=== PATIENT | female | born 1990 | race Caucasian/White ===

== ENCOUNTER 2018-01-08 20:11 | Emergency (ER) | payer MEDICAID ==
[~2018-01-08] VITALS: Ht 157.5 cm; Wt 112.6 kg
[~2018-01-08 20:11] MED LIST: DIPH25CA61 PO; FERR325T18 PO; IBUP-1223 PO; LEVO112T2 PO; LEVO150T5 PO; LEVO1TAB29 PO; LEVO200T5 PO; MULT-224 PO; NORG1TAB10 PO; RIZA10TA20 PO; SENN1TAB67 PO; TOPI100C3 PO
[2018-01-08 20:36] LABS: BASOPHILS # (AUTO) 0.13 x10^3/uL (0-0.1); BASOPHILS % (AUTO) 1 % (0-1); EOSINOPHILS # (AUTO) 0.12 x10^3/uL (0-0.4); EOSINOPHILS % (AUTO) 1 % (1-7); LYMPHOCYTES % (AUTO) 36 % (22-44); MD NO; MEAN CORPUSCULAR HEMOGLOBIN 30.7 pg (27.0-34.8); MEAN CORPUSCULAR HGB CONC 34.5 g/dL (32.4-35.8); MEAN PLATELET VOLUME 9.3 fL (7.4-10.4); MONOCYTES # (AUTO) 0.71 x10^3/uL (0.2-0.8); MONOCYTES % (AUTO) 6 % (2-9); NEUTROPHILS # (AUTO) 6.74 x10^3/uL (1.8-6.8); NEUTROPHILS % (AUTO) 56 % (42-75); PLATELET COUNT 358 x10^3/uL (130-400); RED BLOOD COUNT 4.71 x10^6/uL (3.82-5.3)
[2018-01-08 20:43] LABS: ALANINE AMINOTRANSFERASE 23 U/L (12-78); ANION GAP 10 mmol/L (5-15); CHLORIDE 106 mmol/L (98-107); CREATININE 0.73 mg/dL (0.55-1.02)
[2018-01-08 20:45] LABS: ALKALINE PHOSPHATASE 84 U/L (45-117); BILIRUBIN,TOTAL 0.4 mg/dL (0.2-1.0); TOTAL PROTEIN 8.1 g/dL (6.4-8.2)
[2018-01-08] MEDS ORDERED: MAALOX/HYOSCYAMINE/LIDOCAINE 45 ML BTL ONE (22:14)
[2018-01-08] MEDS ORDERED: MAALOX/HYOSCYAMINE/LIDOCAINE 45 ML BTL PO ONE (22:30)
[2018-01-08 22:36] LABS: MICROSCOPIC NOT IND
[2018-01-08 22:44] LABS: CULTURE INDICATED? NO
[2018-01-09 00:05] VITALS: BP 147/89
== END 2018-01-09 00:21 | disposition home or self-care (01) ==
LOC: ED 22:52
DX: R10.11 Right upper quadrant pain (principal); R10.13 Epigastric pain; E03.9 Hypothyroidism, unspecified; G43.909 Migraine, unspecified, not intractable, without status migrainosus; K21.9 Gastro-esophageal reflux disease without esophagitis; Z90.49 Acquired absence of other specified parts of digestive tract
CPT/HCPCS: 36415; 74022; 80053; 81003; 85025; 99285

== ENCOUNTER 2018-09-08 12:17 | Emergency (ER) | payer MEDICAID ==
[~2018-09-08] VITALS: Ht 160 cm; Wt 112.6 kg
[~2018-09-08 12:17] MED LIST changes: -MULT-224 PO; +MULT-642 PO
[2018-09-08 12:35] VITALS: BP 147/85
== END 2018-09-08 12:53 | disposition home or self-care (01) ==
LOC: ED 12:30
DX: L03.115 Cellulitis of right lower limb (principal); L55.0 Sunburn of first degree; E03.9 Hypothyroidism, unspecified; Z90.49 Acquired absence of other specified parts of digestive tract
CPT/HCPCS: 99283

== ENCOUNTER 2020-01-29 07:55 | Emergency (ER) | payer MEDICAID ==
[~2020-01-29] VITALS: Ht 157.5 cm; Wt 109.6 kg
[2020-01-29 08:04] VITALS: BP 120/77
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
--- NOTE | 2020-01-29 10:09 | NUR ---
Patient/Caregiver given discharge instructions and they have confirmed that they understand the instructions. Patient ambulatory with steady gait.
== END 2020-01-29 10:11 | disposition home or self-care (01) ==
LOC: ED 09:34
DX: S20.212A Contusion of left front wall of thorax, initial encounter (principal); K21.9 Gastro-esophageal reflux disease without esophagitis; E03.9 Hypothyroidism, unspecified; G43.909 Migraine, unspecified, not intractable, without status migrainosus; Z90.49 Acquired absence of other specified parts of digestive tract; Z98.51 Tubal ligation status; W18.39XA Other fall on same level, initial encounter; Y93.89 Activity, other specified; Y92.89 Other specified places as the place of occurrence of the external cause; Y99.0 Civilian activity done for income or pay
CPT/HCPCS: 71250; 99284